=== PATIENT | male | born 1970 | race Caucasian/White ===

== ENCOUNTER 2018-07-19 21:28 | Emergency (ER) | payer BC, OTHER ==
[2018-07-19 21:32] VITALS: BP 130/82
[2018-07-19] MEDS ORDERED: ACETAMINOPHEN 325 MG TABLET PO ONE (21:47)
[2018-07-19] MEDS ORDERED: LIDOCAINE 1%/EPINEPHRINE INJ 20 ML VIAL INJ ONE (21:47)
--- NOTE | 2018-07-19 22:02 | ER Document Report ---
HPI - HPI Patient complains to provider of: Facial laceration Onset: Just prior to arrival Onset/Duration: Sudden Quality of pain: Achy Pain Level: 1 Context: Patient states he was drinking alcohol and slipped getting into the hot tub. Patient states he fell hitting his face on a brick step. Patient with laceration to left side of face. Patient denies any loss of consciousness nausea or vomiting. Patient denies any other injuries. Associated Symptoms: Other - left facial laceration Exacerbated by: Denies Relieved by: Denies Similar symptoms previously: No Recently seen / treated by doctor: No - ROS ROS below otherwise negative: Yes Systems Reviewed and Negative: Yes All other systems reviewed and negative - NEURO Neurology: DENIES: Headache, Weakness - GASTROINTESTINAL Gastrointestinal: DENIES: Nausea, Patient vomiting - MUSCULOSKELETAL Musculoskeletal: DENIES: Back Pain, Neck Pain - DERM Skin Color: Normal Skin Problems: Laceration - Left facial area Past Medical History - General Information source: Patient - Social History Smoking Status: Never Smoker Frequency of alcohol use: Occasional Drug Abuse: None Lives with: Family Family History: Reviewed & Not Pertinent - Medical History Medical History: Other - Ankylosing spondylitis - Past Medical History Cardiac Medical History: Reports: Hx Hypertension Surgical Hx: Negative Vertical Provider Document - CONSTITUTIONAL Agree With Documented VS: Yes Exam Limitations: No Limitations General Appearance: WD/WN, No Apparent Distress - INFECTION CONTROL TRAVEL OUTSIDE OF THE [place] IN LAST 30 DAYS: No - HEENT HEENT: Normal ENT Exam, Normocephalic, PERRLA Notes: Patient with linear scar over left maxilla measuring 2-1/2 cm, extraocular movements intact, no dental injury. - NECK Neck: Normal Inspection, Supple, Other - No cervical midline tenderness, step- off or deformity - RESPIRATORY Respiratory: Breath Sounds Normal, No Respiratory Distress - CARDIOVASCULAR Cardiovascular: Regular Rate, Regular Rhythm - BACK Back: Normal Inspection - MUSCULOSKELETAL/EXTREMETIES Musculoskeletal/Extremeties: EVELINA NAVARRO - NEURO Level of Consciousness: Awake, Alert, Appropriate Motor/Sensory: No Motor Deficit - DERM Integumentary: Warm, Dry, Laceration - Facial area Course - Vital Signs Vital signs: Temp Pulse Resp BP Pulse Ox 97.8 F 90 18 130/82 H 96 07/19/18 21:30 07/19/18 21:30 07/19/18 21:30 07/19/18 21:30 07/19/18 21:30 - Diagnostic Test Radiology reviewed: Reports reviewed Procedures - Laceration/Wound Repair Left Face Wound length (cm): 2.5 Wound's Depth, Shape: Linear Anesthetic type: 1% Lidocaine w/epi Wound explored: Clean Wound Repaired With: Sutures Suture Size/Type: 6:0, Nylon Number of Sutures: 8 Post-procedure wound care: Sterile dressing applied Post-procedure NV exam normal: Yes Complications: No Adult Head Front/Back picture: 1 - lac Discharge - Discharge Clinical Impression: Head injury Qualifiers: Encounter type: initial encounter Qualified Code(s): S09.90XA - Unspecified injury of head, initial encounter Facial laceration Qualifiers: Encounter type: initial encounter Qualified Code(s): S01.81XA - Laceration without foreign body of other part of head, initial encounter Condition: Stable Instructions: Acetaminophen, Facial Laceration ([facility]), Head Injury Precautions ( [facility]) Additional Instructions: Return immediately for any new or worsening symptoms Followup with your primary care provider, call tomorrow to make a followup appointment Suture removal in 6 days Referrals: HALI BERRY MD [ACTIVE STAFF] - Follow up as needed
--- NOTE | 2018-07-19 22:11 | RADIOLOGY REPORT (SQ) ---
CT MAXILLOFACIAL WITHOUT IV CONTRAST HISTORY: Fall. Left facial pain. COMPARISON: None. TECHNIQUE: CT scan of the facial bones. This exam was performed according to our departmental dose-optimization program, which includes automated exposure control, adjustment of the mA and/or kV according to patient size and/or use of iterative reconstruction technique. FINDINGS: No acute facial bone fracture. Soft tissue defect with mild swelling overlying the left periorbital region. Mild mucosal thickening of the anterior ethmoid air cells and bilateral maxillary sinuses. No air-fluid levels are seen. Mastoid air cells are clear. No retrobulbar mass or hematoma. Degenerative changes of the left TMJ. Surrounding soft tissues are unremarkable. IMPRESSION: Soft tissue defect with mild swelling overlying the left periorbital region. No acute maxillofacial fracture.
== END 2018-07-19 23:05 | disposition home or self-care (01) ==
LOC: ER 21:28
PROC: 0HQ1XZZ Repair Face Skin, External Approach (ICD-10-PCS; principal; 2018-07-19)
DX: S01.81XA Laceration without foreign body of other part of head, initial encounter (principal); S09.90XA Unspecified injury of head, initial encounter; W01.0XXA Fall on same level from slipping, tripping and stumbling without subsequent striking against object, initial encounter
CPT/HCPCS: 99282; 70486; 12011; J3490